=== PATIENT | female | born 1960 | race Asian ===

== ENCOUNTER 2019-10-13 09:46 | Emergency (ER) | payer OTHER ==
[2019-10-13 10:07] VITALS: BP 126/77
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
[2019-10-13] MEDS ORDERED: HYDROcodone/ACETAMINOPHEN 5-325 MG TAB PO ONE (11:46)
[2019-10-13] MEDS ORDERED: IBUPROFEN 800 MG TAB PO ONE (11:46)
[2019-10-13] MEDS ORDERED: CYCLOBENZAPRINE 10 MG TAB PO ONE (11:47)
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
== END 2019-10-13 14:23 | disposition home or self-care (01) ==
LOC: ED 09:46
DX: S39.012A Strain of muscle, fascia and tendon of lower back, initial encounter (principal); S09.90XA Unspecified injury of head, initial encounter; G44.309 Post-traumatic headache, unspecified, not intractable; Z79.1 Long term (current) use of non-steroidal anti-inflammatories (NSAID); Z79.899 Other long term (current) drug therapy; V49.49XA Driver injured in collision with other motor vehicles in traffic accident, initial encounter; Y93.89 Activity, other specified; Y92.488 Other paved roadways as the place of occurrence of the external cause; Y99.8 Other external cause status
CPT/HCPCS: 70450; 71046; 72040; 72100